=== PATIENT | female | born 1950 | race African-American/Black ===

== ENCOUNTER 2018-08-10 14:18 | Inpatient (IN) | payer OTHER ==
[~2018-08-10] VITALS: Ht 149.9 cm; Wt 116.1 kg
[~2018-08-10 14:18] MED LIST: ALD25 NG; AMLODIPINE10 M1 PO; DIOVAN320 MG PO; GLU500 PO; METOPROLOL SUCC50 M1 PO; PHECLUD PO; PRA20 PO; TOP50 PO
[2018-08-10 14:55] LABS: CALCIUM 8.5 mg/dL (8.5-10.1); CARBON DIOXIDE 37.2 mmol/L (21-32); CREATININE SERUM 1.3 mg/dL (0.6-1.0); POTASSIUM SERUM 4.4 mmol/L (3.5-5.1)
[2018-08-10 15:01] LABS: BILIRUBIN TOTAL 0.35 mg/dL (0.20-1.00); TOTAL PROTEIN, SERUM 7.2 g/dL (6.4-8.2)
[2018-08-10 15:04] LABS: ALBUMIN 2.2 g/dL (3.4-5.0)
[2018-08-10 15:12] LABS: BASOPHIL % 1.3 % (0-2); PLATELET COUNT 339 x10^3mcL (130-400); RED CELL DISTRIBUTION WIDTH 20.5 % (11.5-14.5)
[2018-08-10 15:40] LABS: rbc morphology (normal/abnorm) ABNORMAL (NORMAL)
[2018-08-10] MEDS ORDERED: LANTUS SOLOS100 U/M1 SC (16:27)
[2018-08-10] MEDS ORDERED: FUROSEMIDE40 MG PO (16:28)
[2018-08-10 17:16] VITALS: BP 138/71
[2018-08-10 18:11] VITALS: BP 151/98
[2018-08-10 21:27] VITALS: BP 151/85
[2018-08-11 06:13] VITALS: BP 135/77
[2018-08-11 06:26] LABS: PLATELET COUNT 334 x10^3mcL (130-400)
[2018-08-11 06:27] LABS: RED CELL DISTRIBUTION WIDTH 20.8 % (11.5-14.5)
[2018-08-11 06:28] LABS: BASOPHIL % 0 % (0-2)
[2018-08-11 07:19] LABS: BILIRUBIN TOTAL 0.36 mg/dL (0.20-1.00); CALCIUM 8.4 mg/dL (8.5-10.1); CARBON DIOXIDE 33.4 mmol/L (21-32); CREATININE SERUM 1.7 mg/dL (0.6-1.0); POTASSIUM SERUM 5.5 mmol/L (3.5-5.1)
[2018-08-11 07:35] LABS: ALBUMIN 2.4 g/dL (3.4-5.0)
[2018-08-11 09:57] VITALS: BP 155/72
[2018-08-11 12:16] VITALS: BP 184/57
[2018-08-11 13:05] VITALS: BP 130/52
[2018-08-11 16:43] VITALS: BP 165/56
[2018-08-11 21:11] VITALS: BP 123/72
[2018-08-12 05:24] VITALS: BP 126/55
[2018-08-12 06:21] LABS: BILIRUBIN TOTAL 0.23 mg/dL (0.20-1.00); CALCIUM 8.8 mg/dL (8.5-10.1); CARBON DIOXIDE 36.5 mmol/L (21-32); CREATININE SERUM 2.1 mg/dL (0.6-1.0); POTASSIUM SERUM 4.7 mmol/L (3.5-5.1); TOTAL PROTEIN, SERUM 7.7 g/dL (6.4-8.2)
[2018-08-12 06:31] LABS: ALBUMIN 2.5 g/dL (3.4-5.0)
[2018-08-12 08:50] VITALS: BP 135/49
[2018-08-12 12:21] VITALS: BP 171/61
[2018-08-12 16:36] VITALS: BP 132/48
[2018-08-12 20:26] VITALS: BP 134/55
[2018-08-13 05:07] VITALS: BP 107/59
[2018-08-13 06:47] LABS: BILIRUBIN DIRECT 0.06 mg/dL (0.0-0.2); CARBON DIOXIDE 36.7 mmol/L (21-32); CREATININE SERUM 2.4 mg/dL (0.6-1.0); POTASSIUM SERUM 4.7 mmol/L (3.5-5.1); TOTAL PROTEIN, SERUM 7.2 g/dL (6.4-8.2)
[2018-08-13 07:00] LABS: ALBUMIN 2.6 g/dL (3.4-5.0); BILIRUBIN TOTAL 0.1 mg/dL (0.20-1.00)
[2018-08-13 08:13] VITALS: BP 107/55
[2018-08-13 08:40] LABS: PLATELET COUNT 332 x10^3mcL (130-400)
[2018-08-13 08:44] LABS: RED CELL DISTRIBUTION WIDTH 20.5 % (11.5-14.5)
[2018-08-13 10:23] VITALS: Ht 149.9 cm; Wt 116.1 kg
[2018-08-13 12:11] LABS: UA SPECIFIC GRAVITY >=1.030 (1.005-1.035); microscopic required? YES; urine erythrocyte NEGATIVE (NEGATIVE)
[2018-08-13 12:13] VITALS: BP 142/64
[2018-08-13 12:55] LABS: SEGMENTED NEUTROPHILS 67 % (37-75)
[2018-08-13 12:56] LABS: BAND NEUTROPHIL 3 % (0-10); MONOCYTE 2 % (0-7); rbc morphology (normal/abnorm) NORMAL (NORMAL); target cell (codocyte) 2+
[2018-08-13 12:57] LABS: PLATELET MORPHOLOGY LARGE PLATELET SEEN
[2018-08-13 16:31] VITALS: BP 138/64
[2018-08-13 19:20] VITALS: BP 139/76
[2018-08-14 06:12] VITALS: BP 141/61
[2018-08-14 07:50] LABS: BILIRUBIN TOTAL 0.24 mg/dL (0.20-1.00); CALCIUM 8.3 mg/dL (8.5-10.1); CALCIUM 8.8 mg/dL (8.5-10.1); CARBON DIOXIDE 35.2 mmol/L (21-32); CARBON DIOXIDE 35.8 mmol/L (21-32); POTASSIUM SERUM 4.5 mmol/L (3.5-5.1); POTASSIUM SERUM 4.8 mmol/L (3.5-5.1)
[2018-08-14 08:02] LABS: ALBUMIN 2.5 g/dL (3.4-5.0)
[2018-08-14 09:20] VITALS: BP 166/70
[2018-08-14 12:51] VITALS: BP 176/98
[2018-08-14 17:18] VITALS: BP 165/94
[2018-08-14 21:18] VITALS: BP 166/87
[2018-08-14 22:30] VITALS: BP 137/67
[2018-08-15] VITALS (7 sets, daily range): BP systolic 146–171; BP diastolic 76–89
[2018-08-15 07:15] LABS: CALCIUM 9.6 mg/dL (8.5-10.1); CREATININE SERUM 1.4 mg/dL (0.6-1.0); POTASSIUM SERUM 4.6 mmol/L (3.5-5.1)
[2018-08-15 07:30] LABS: BILIRUBIN TOTAL 0.44 mg/dL (0.20-1.00); CALCIUM 8.5 mg/dL (8.5-10.1); CARBON DIOXIDE 38.6 mmol/L (21-32); CREATININE SERUM 1.5 mg/dL (0.6-1.0); POTASSIUM SERUM 4.4 mmol/L (3.5-5.1); TOTAL PROTEIN, SERUM 6.7 g/dL (6.4-8.2)
[2018-08-15 07:31] LABS: ALBUMIN 2.4 g/dL (3.4-5.0)
[2018-08-16 05:05] VITALS: BP 145/78
[2018-08-16 05:08] VITALS: BP 168/83
[2018-08-16 07:24] LABS: BILIRUBIN DIRECT 0.14 mg/dL (0.0-0.2); BILIRUBIN TOTAL 0.54 mg/dL (0.20-1.00); CALCIUM 8.6 mg/dL (8.5-10.1); CARBON DIOXIDE 38.2 mmol/L (21-32); CREATININE SERUM 1.1 mg/dL (0.6-1.0); POTASSIUM SERUM 4.3 mmol/L (3.5-5.1); TOTAL PROTEIN, SERUM 6.7 g/dL (6.4-8.2)
[2018-08-16 07:48] LABS: ALBUMIN 2.4 g/dL (3.4-5.0)
[2018-08-16 08:45] LABS: PLATELET COUNT 280 x10^3mcL (130-400)
[2018-08-16 09:32] VITALS: BP 158/79
[2018-08-16 10:31] LABS: ATYPICAL LYMPH 2 %; BAND NEUTROPHIL 0 % (0-10); BASOPHIL 0 % (0-2); MONOCYTE 20 % (0-7); SEGMENTED NEUTROPHILS 66 % (37-75); rbc morphology (normal/abnorm) ABNORMAL (NORMAL)
[2018-08-16 10:32] LABS: PLATELET MORPHOLOGY PLATELETS DECREASED; target cell (codocyte) 2+
[2018-08-16 12:57] VITALS: BP 163/86
[2018-08-16 13:15] VITALS: BP 158/79
== END 2018-08-16 14:33 | disposition home health service (06) | DRG 190 ==
LOC: ED 14:18 → DU 16:30
PROVIDERS: Emergency Medicine; Internal Medicine; ADMIT Internal Medicine
DX: J44.1 Chronic obstructive pulmonary disease with (acute) exacerbation (principal); J96.22 Acute and chronic respiratory failure with hypercapnia; I50.23 Acute on chronic systolic (congestive) heart failure; I42.0 Dilated cardiomyopathy; I13.0 Hypertensive heart and chronic kidney disease with heart failure and stage 1 through stage 4 chronic kidney disease, or unspecified chronic kidney disease; Z68.43 Body mass index [BMI] 50.0-59.9, adult; E87.3 Alkalosis; E66.2 Morbid (severe) obesity with alveolar hypoventilation; N17.9 Acute kidney failure, unspecified; E11.21 Type 2 diabetes mellitus with diabetic nephropathy; E11.22 Type 2 diabetes mellitus with diabetic chronic kidney disease; E11.65 Type 2 diabetes mellitus with hyperglycemia; N18.3 Chronic kidney disease, stage 3 (moderate); I27.20 Pulmonary hypertension, unspecified; Z91.19 Patient's noncompliance with other medical treatment and regimen
CPT/HCPCS: 36600; 82962; 83880; 85378; 97110-GP; 97116-GP; 97530-GP; J0456; J1644; J1940; J2270; J2405; J2920; J2930; J7040; J7050; J7620; J7626; Q0092

== ENCOUNTER 2019-07-12 17:56 | Emergency (ER) | payer OTHER ==
[~2019-07-12] VITALS: Ht 152.4 cm; Wt 113.4 kg
[~2019-07-12 17:56] MED LIST changes: +FUROSEMIDE40 MG PO; +LANTUS SOLOS100 U/M1 SC
[2019-07-12 18:02] VITALS: Ht 152.4 cm; Wt 113.4 kg
[2019-07-12 18:33] LABS: BASOPHIL % 1.3 % (0-2); PLATELET COUNT 343 x10^3mcL (130-400)
[2019-07-12 18:34] LABS: RED CELL DISTRIBUTION WIDTH 17.4 % (11.5-14.5)
[2019-07-12 19:25] VITALS: BP 158/74
[2019-07-12 19:30] LABS: CALCIUM 8.2 mg/dL (8.5-10.1); CARBON DIOXIDE 32.2 mmol/L (21-32); CREATININE SERUM 1.3 mg/dL (0.6-1.0); POTASSIUM SERUM 4.6 mmol/L (3.5-5.1)
[2019-07-12 19:31] LABS: BILIRUBIN TOTAL 0.22 mg/dL (0.20-1.00); TOTAL PROTEIN, SERUM 6.9 g/dL (6.4-8.2)
[2019-07-12 19:32] LABS: ALBUMIN 2.6 g/dL (3.4-5.0)
== END 2019-07-12 21:42 | disposition home or self-care (01) ==
LOC: ED 17:56
DX: J44.1 Chronic obstructive pulmonary disease with (acute) exacerbation (principal); I11.0 Hypertensive heart disease with heart failure; I50.9 Heart failure, unspecified; E11.9 Type 2 diabetes mellitus without complications; Z88.0 Allergy status to penicillin; Z88.6 Allergy status to analgesic agent
CPT/HCPCS: 83880; J2930; J7613; J7644; Q0092